=== PATIENT | female | born 1975 | race Caucasian/White ===

== ENCOUNTER → 2016-08-30 | Outpatient (CLI) | payer MEDICARE | LOC: RAD 10:48 | DX: R05 Cough (principal); Z87.891 Personal history of nicotine dependence | CPT/HCPCS: 71020 ==

== ENCOUNTER 2016-09-07 03:44 | Emergency (ER) | payer MEDICARE ==
[2016-09-07 04:14] LABS: HEMOGLOBIN 13.5 gm/dl (12.3-15.3); RED BLOOD COUNT 4.68 M/UL (4.00-5.10); WHITE BLOOD COUNT 10.9 K/UL (4.5-11.0)
[2016-09-07 04:32] LABS: BUN/CREATININE RATIO 14 (0-10)
== END 2016-09-07 11:45 | disposition home or self-care (01) ==
LOC: ER1 03:44
PROVIDERS: Student in an Organized Health Care Education/Training Program
DX: K62.5 Hemorrhage of anus and rectum (principal); R10.32 Left lower quadrant pain; K21.9 Gastro-esophageal reflux disease without esophagitis; F17.290 Nicotine dependence, other tobacco product, uncomplicated; Z88.5 Allergy status to narcotic agent; Z88.8 Allergy status to other drugs, medicaments and biological substances; Z79.899 Other long term (current) drug therapy
CPT/HCPCS: 36415; 71010; 80053; 81001; 82150; 82272; 82550; 82553; 83690; 83874; 84484; 84702; 84703; 85025; 85610; 85730; 86850; 86900; 86901; 87077; 87086; 87186; 93005; 96360; 96361; 99284; J7050; Q9962

== ENCOUNTER 2020-10-29 20:47 | Emergency (ER) | payer MEDICARE ==
[~2020-10-29 20:47] MED LIST: BUTALB-ACETAMI1 EAC1 PO
== END 2020-10-30 00:06 | disposition home or self-care (01) ==
LOC: ER1 20:47
DX: U07.1 COVID-19 (principal); G43.909 Migraine, unspecified, not intractable, without status migrainosus; J45.909 Unspecified asthma, uncomplicated; Z88.5 Allergy status to narcotic agent; Z88.8 Allergy status to other drugs, medicaments and biological substances; Z88.1 Allergy status to other antibiotic agents; F17.290 Nicotine dependence, other tobacco product, uncomplicated; Z90.89 Acquired absence of other organs
CPT/HCPCS: 71045; 96372; 99284; J1885; J3030